=== PATIENT | male | born 1985 | race African-American/Black ===

== ENCOUNTER 2021-12-26 15:06 | Emergency (ER) | payer MEDICAID ==
[~2021-12-26] VITALS: Ht 170.2 cm; Wt 71.0 kg
[2021-12-26] MEDS ORDERED: CEFTRIAXONE SODIUM 500 MG/VIAL IM ONE (16:15)
[2021-12-26] MEDS ORDERED: DOXY100T2 MT (16:58)
[2021-12-26 17:03] LABS: CLARITY URINE CLOUDY (CLEAR); COLOR URINE YELLOW (YELLOW); KETONES URINE NEGATIVE (NEGATIVE); LEUKOCYTE ESTERASE URINE 3+ (NEGATIVE); NITRITE URINE NEGATIVE (NEGATIVE); OCCULT BLOOD URINE NEGATIVE (NEGATIVE); PROTEIN URINE NEGATIVE (NEGATIVE); SPECIFIC GRAVITY URINE 1.024 (1.005-1.030)
[2021-12-26 17:16] VITALS: BP 127/86
== END 2021-12-26 17:17 | disposition home or self-care (01) ==
LOC: ER 15:06
DX: R36.9 Urethral discharge, unspecified (principal)
CPT/HCPCS: 81003; 87086; 96372; 99283; J0696